=== PATIENT | male | born 1985 | race Caucasian/White ===

== ENCOUNTER 2017-01-03 06:29 | Emergency (ER) | payer OTHER ==
[~2017-01-03] VITALS: Ht 165.1 cm; Wt 88.0 kg
[~2017-01-03 06:29] MED LIST: AMOXICILLIN500 MG PO; FLEXERIL10 MG PO; MOTRIN800 MG PO; NAPROSYN500 MG PO; NOHOMEMEDS; ULTRAM50 MG PO
[2017-01-03 07:44] LABS: BASOPHIL COUNT 0.1 K/uL (0-0.1); EOSINOPHIL (%) 3.1 % (0-5); EOSINOPHIL COUNT 0.3 K/uL (0-0.3); HEMATOCRIT 45.9 % (38.0-50.0); IMMATURE GRANULOCYTE (%) 0.2 % (0.0-0.7); LYMPHOCYTE COUNT 3.7 K/uL (1.0-2.8); MCHC 35.3 G/DL (30.0-36.0); MCV 87.9 FL (86-99); MEAN PLAT.VOLUME 9.6 uM^3 (9.0-12.4); MONOCYTE (%) 8.7 % (3-12); MONOCYTE COUNT 0.8 K/uL (0-0.8); PLATELET COUNT 264 K/uL (156-360); RBC DIS.WIDTH-CV 11.9 % (11.8-14.6); RBC DIS.WIDTH-SD 38.3 % (39-53); RED BLOOD COUNT 5.22 M/uL (4.00-5.50); WHITE BLOOD COUNT 8.8 K/uL (4.1-10.2)
[2017-01-03 08:05] LABS: ANION GAP 13 MEQ/L (2-14); CHLORIDE 104 MEQ/L (99-109); POTASSIUM 3.5 MEQ/L (3.7-5.4); SAMPLE HEMOLYSIS CHECK 0; SAMPLE ICTERIC CHECK 0; SAMPLE LIPEMIA CHECK 0; SODIUM 142 MEQ/L (136-147)
[2017-01-03 08:11] LABS: GFR ESTIMATE (CALCULATED) > 59 mL/min/; GLUCOSE 88 mg/dL (70-99); UREA NITROGEN (BUN) 13 mg/dL (9-23)
[2017-01-03 08:21] LABS: ADD MIUA? NO; BILIRUBIN NEGATIVE; BLOOD NEGATIVE; COLOR COLORLESS ((YELLOW)); GLUCOSE (STRIP) NEGATIVE; KETONES NEGATIVE; LEUKOCYTES NEGATIVE; NITRITE NEGATIVE; PROTEIN (STRIP) NEGATIVE; SPECIFIC GRAVITY 1.004 (1.000-1.030); UROBILINOGEN 0.2 MG/DL (0.2-1.0)
[2017-01-03] MEDS ORDERED: TYLENOL WITH C1 EACH PO (09:25)
[2017-01-03 10:33] VITALS: BP 124/83
== END 2017-01-03 10:34 | disposition home or self-care (01) ==
LOC: EME 06:29
PROVIDERS: Emergency Medicine
DX: S22.32XA Fracture of one rib, left side, initial encounter for closed fracture (principal); W10.9XXA Fall (on) (from) unspecified stairs and steps, initial encounter; F17.200 Nicotine dependence, unspecified, uncomplicated
CPT/HCPCS: 71100; 74177; 80048; 81003; 85025; 99281; 99285; J2270; J7030

== ENCOUNTER 2017-05-26 05:41 | Emergency (ER) | payer OTHER ==
[~2017-05-26] VITALS: Ht 167.6 cm; Wt 86.8 kg
[~2017-05-26 05:41] MED LIST changes: +TYLENOL WITH C1 EACH PO
[2017-05-26] MEDS ORDERED: PERCOCET 5/31 TABLET PO (06:57)
[2017-05-26 07:25] VITALS: BP 129/87
== END 2017-05-26 07:26 | disposition home or self-care (01) ==
LOC: EME 05:41
PROC: 2W3CX1Z Immobilization of Right Lower Arm using Splint (ICD-10-PCS; principal; 2017-05-26)
DX: S62.324A Displaced fracture of shaft of fourth metacarpal bone, right hand, initial encounter for closed fracture (principal); W22.09XA Striking against other stationary object, initial encounter; F43.10 Post-traumatic stress disorder, unspecified; F17.200 Nicotine dependence, unspecified, uncomplicated
CPT/HCPCS: 73130; 99281; 99284

== ENCOUNTER 2017-12-29 09:59 | Emergency (ER) | payer OTHER ==
[~2017-12-29] VITALS: Ht 167.6 cm; Wt 82.3 kg
[~2017-12-29 09:59] MED LIST changes: +PERCOCET 5/31 TABLET PO
[2017-12-29] MEDS ORDERED: KEFLEX500 MG PO (10:49)
[2017-12-29] MEDS ORDERED: ATHLETIC FOOT C30 GM TP (10:49)
[2017-12-29 11:04] VITALS: BP 142/86
== END 2017-12-29 11:05 | disposition home or self-care (01) ==
LOC: EME 09:59
DX: B35.3 Tinea pedis (principal); Z87.2 Personal history of diseases of the skin and subcutaneous tissue; Z88.8 Allergy status to other drugs, medicaments and biological substances
CPT/HCPCS: 99281; 99284